=== PATIENT | female | born 1940 | race Caucasian/White ===

== ENCOUNTER 2016-02-29 18:21 | Emergency (ER) | payer SELFPAY ==
[~2016-02-29] VITALS: Ht 132.1 cm; Wt 63.0 kg
[2016-02-29 18:35] VITALS: Ht 132.1 cm; Wt 63.0 kg
[2016-03-01] MEDS ORDERED: hydrALAzine 20 MG INJ IV ONE (01:00)
[2016-03-01 01:08] VITALS: TEMP 98.6
--- NOTE | 2016-03-01 01:10 | RADRPT ---
PROCEDURE: XR Chest. CLINICAL INDICATION: Headache. TECHNIQUE: Single frontal view of the chest was obtained COMPARISON: None FINDINGS: Cardiomegaly. Likely changes of centrolobular emphysema in the bilateral lungs. Small calcified gra nuloma likely present in the right mid lung. Lungs otherwise substantially clear. There is no pleural effusion or pneumothorax. IMPRESSION: No acute disease. RPTAT: [facility] Physician Evan Date Time Electronically viewed and signed by Agata Pena Physician on 03/01/2016 01:09 RS/
[2016-03-01 01:17] LABS: BASOPHILS % 0.6 % (0.0-2.0); EOSINOPHILS # 0.2 10^3/ul (0.0-0.5); EOSINOPHILS % 2.6 % (0.0-7.0); HEMATOCRIT 46.6 % (37.0-47.0); LYMPHOCYTES # 1.9 10^3/ul (0.8-2.9); LYMPHOCYTES % 29.6 % (15.0-51.0); MEAN CORPUSCULAR HEMOGLOBIN 30.6 pg (29.0-33.0); MEAN CORPUSCULAR HGB CONC 34.4 g/dl (32.0-37.0); MEAN PLATELET VOLUME 8.6 fl (7.4-10.4); MONOCYTE # 0.5 10^3/ul (0.3-0.9); MONOCYTES % 7.8 % (0.0-11.0); NEUTROPHIL # 3.8 10^3/ul (1.6-7.5); NEUTROPHILS % 59.4 % (39.0-77.0); PLATELET COUNT 140 10^3/UL (140-440); RED BLOOD COUNT 5.23 10^6/ul (4.20-5.40); RED CELL DISTRIBUTION WIDTH 12.9 % (11.5-14.5); UNCORRECTED WBC 6.4 10^3/ul (4.8-10.8); WHITE BLOOD COUNT 6.4 10^3/ul (4.8-10.8)
[2016-03-01 01:21] LABS: CONDITION 1
[2016-03-01 01:25] LABS: PROTIME 13.2 Sec (12.2-14.2)
[2016-03-01 01:26] LABS: PARTIAL THROMBOPLASTIN TIME 30.5 Sec (25.0-35.0)
[2016-03-01 01:35] LABS: POTASSIUM 3.8 mmol/L (3.5-5.1)
[2016-03-01 01:38] LABS: CREATININE 0.81 mg/dl (0.44-1.00)
[2016-03-01 01:39] LABS: CALCIUM 9.4 mg/dl (8.4-10.2)
--- NOTE | 2016-03-01 01:39 | RADRPT ---
PROCEDURE: CT Brain without contrast. CLINICAL INDICATION: Patient experiencing a headache. TECHNIQUE: A CT of the brain was performed on a multidetector CT scanner utilizing axial sections from the skull base through the vertex without contrast. Images were reviewed on a high-resolution [employer] workstation. Exam CTDI = 45.01 mGy and the DLP = 720.23 mGy-cm. One or more of the following dose reduction techniques were used: - Automated exposure control. - Adjustment of the mA and/or kV according to patient size. - Use of iterative reconstruction technique. COMPARISON: None available FINDINGS: Minimal diffuse cerebral and cerebellar atrophy is present. There is proportionate dilatation of th e ventricular system and sulci in a symmetric fashion. There is no evidence of intracranial hemorrha ge, mass effect or midline shift. No abnormal intra-axial or extra-axial fluid collections are seen . The pak/white matter differentiation is preserved. Minimal patchy diffuse deep white matter wilder roangiopathic ischemic change is seen. The osseous structures and visualized paranasal sinuses are unremarkable. Minimal vascular calcifications are identified. IMPRESSION: No acute abnormality seen. RPTAT: HJES .Sarmad Ward MD, MD Date Time Electronically viewed and signed by .Sarmad Ward MD, on 03/01/2016 01:38 .S/
[2016-03-01] MEDS ORDERED: APR50 PO (01:52)
--- NOTE | 2016-03-01 01:52 | ERD ---
ER Documentation Chief Complaint Date/Time DATE: 03/01/16 TIME: 01:51 Chief Complaint ELEVATED BP SINCE MONDAY WITH HEADACHES HPI This is a 75, blood pressure is rather with headaches. Headaches are mild to moderate intensity. Blood pressures been running high 180s-200s. No fevers no chills. No chest pain. No other current complaints. No visual acuity changes. ROS All systems reviewed and are negative except as per history of present illness. PMhx/Soc History of Surgery: Yes (HYSTERECTOMY, BLADDER SLING) Anesthesia Reaction: No Hx Neurological Disorder: No Hx Respiratory Disorders: No Hx Cardiac Disorders: Yes (HTN) Hx Psychiatric Problems: No Hx Miscellaneous Medical Probl: No Hx Alcohol Use: No Hx Substance Use: No Hx Tobacco Use: No Smoking Status: Never smoker Physical Exam Vitals Vital Signs Date Time Temp Pulse Resp B/P Pulse Ox O2 Delivery O2 Flow Rate FiO2 03/01/16 01:08 98.6 78 16 190/82 99 Room Air 02/29/16 18:35 97.5 62 20 193/91 97 Physical Exam Const: [] Head: Atraumatic Eyes: Normal Conjunctiva ENT: Normal External Ears, Nose and Mouth. Neck: Full range of motion..~ No meningismus. Resp: Clear to auscultation bilaterally Cardio: Regular rate and rhythm, no murmurs Abd: Soft, non tender, non distended. Normal bowel sounds Skin: No petechiae or rashes Back: No midline or flank tenderness Ext: No cyanosis, or edema Neur: Awake and alert Psych: Normal Mood and Affect Result Diagram: 03/01/169903/01/16 0100 Results 24 hrs Laboratory Tests Test 03/01/16 01:00 Activated Partial Thromboplast Time 30.5Sec Anion Gap 18 Basophils # 0.010^3/ul Basophils % 0.6% Blood Urea Nitrogen 18mg/dl Calcium Level 9.4mg/dl Carbon Dioxide Level 27mmol/L Chloride Level 104mmol/L Creatinine 0.81mg/dl Eosinophils # 0.210^3/ul Eosinophils % 2.6% Glucose Level 101mg/dl Hematocrit 46.6% Hemoglobin 16.0g/dl INR International Normalized Ratio 1.00 Lymphocytes # 1.910^3/ul Lymphocytes % 29.6% Mean Corpuscular Hemoglobin 30.6pg Mean Corpuscular Hemoglobin Concent 34.4g/dl Mean Corpuscular Volume 89.0fl Mean Platelet Volume 8.6fl Monocytes # 0.510^3/ul Monocytes % 7.8% Neutrophils # 3.810^3/ul Neutrophils % 59.4% Nucleated Red Blood Cells # 0.010^3/ul Nucleated Red Blood Cells % 0.0/100WBC Platelet Count 48855^3/UL Potassium Level 3.8mmol/L Prothrombin Time 13.2Sec Prothrombin Time Ratio 1.0 Red Blood Count 5.2310^6/ul Red Cell Distribution Width 12.9% Sodium Level 145mmol/L White Blood Count 6.410^3/ul Current Medications Medications (Trade) Dose Ordered Sig/Jaspal Route PRN Reason Start Time Stop Time Status Last Admin Dose Admin Hydralazine HCl (Apresoline) 20 mg ONCE ONCE IV 03/01/16 01:00 03/01/16 01:01 DC 03/01/16 01:01 Procedures/MDM EKG: Rate/Rhythm: Normal Sinus Rhythm QRS, ST, T-waves: No changes consistent w/ acute ischemia Impression: No evidence of ischemia or arrhythmia Chest X-ray 1V Interpreted by me: Soft Tissue: No acute abnormalities Bones: No acute abnormalities Mediastinum/Cardiac Silhouette/Lungs: No acute abnormalities Patient's blood pressure was elevated (>120/80) but appears stable without evidence of hypertension emergency or urgency. The patient was counseled about the risks of hypertension and urged to pursue outpatient monitoring and therapy within a week with their primary care physician. Patient's thoracic symptoms have stabilized while in the department and are stable for outpatient follow up. Exam and work up not consistent w/ ischemia, arrhythmia, PE or dissection. M Patient's neurologic symptoms have stabilized while they have been evaluated in the department and are appropriate for outpatient work up. No e/o meningitis, intracranial bleed, seizure, stroke. Departure Diagnosis: Primary Impression: Hypertension Hypertension type: essential hypertension Qualified Code: I10 - Essential hypertension Condition: Stable LARISA SARMIENTO Mar 01, 2016 01:51
[2016-03-01 02:06] VITALS: BP 132/70; PULSE 55; RESP 18
== END 2016-03-01 02:06 | disposition home or self-care (01) ==
LOC: E/R 18:21
DX: I10 Essential (primary) hypertension (principal); R40.2142 Coma scale, eyes open, spontaneous, at arrival to emergency department; R40.2252 Coma scale, best verbal response, oriented, at arrival to emergency department; R40.2362 Coma scale, best motor response, obeys commands, at arrival to emergency department
CPT/HCPCS: 36415; 70450; 71010; 80048; 85025; 85610; 85730; 93005; 96374; 99285; J0360